=== PATIENT | male | born 1995 | race Caucasian/White ===

== ENCOUNTER 2018-09-16 09:29 | Emergency (ER) | payer BC, OTHER ==
--- NOTE | 2018-09-16 10:57 | ER ---
Nurse's Notes [facility] Name: Juan Lopez Age: 23 yrs Sex: Male : 1995 Arrival Date: 09/16/2018 Time: 09:33 Bed 20 Private MD: Diagnosis: Sprain of ankle Presentation: 09/16 09:33 Presenting complaint: Patient states: left foot injury Sunday, c/o pain. Transition sv of care: patient was not received from another setting of care. Onset of symptoms was September 11, 2018. Care prior to arrival: None. 09:33 Method Of Arrival: Ambulatory sv 09:33 Acuity: RADHA 4 sv 09:57 Risk Assessment: Do you want to hurt yourself or someone else? Patient reports no tw2 desire to harm self or others. Initial Sepsis Screen: Does the patient meet any 2 criteria? No. Patient's initial sepsis screen is negative. Does the patient have a suspected source of infection? No. Patient's initial sepsis screen is negative. Triage Assessment: 09:36 General: Appears in no apparent distress. uncomfortable, Behavior is calm, cooperative, sv appropriate for age. Pain: Denies pain. Neuro: Level of Consciousness is awake, alert, obeys commands, Oriented to person, place, time, situation, Moves all extremities. Respiratory: Respiratory effort is even, unlabored, Respiratory pattern is regular, symmetrical. Derm: Skin is normal, Bruising that is dark purple, on left foot. Musculoskeletal: Swelling present in left foot. Historical: - Allergies: 09:34 No Known Allergies; sv - PMHx: 09:34 None; sv - PSHx: 09:34 None; sv - Immunization history:: Flu vaccine is not up to date. - Social history:: Smoking status: Patient/guardian denies using tobacco, Patient/guardian denies using alcohol, street drugs, The patient lives with family. - Ebola Screening: : No symptoms or risks identified at this time. - Family history:: not pertinent. - Hospitalizations: : No recent hospitalization is reported. Screenin:36 Abuse screen: Denies threats or abuse. Nutritional screening: No deficits noted. tw2 Tuberculosis screening: No symptoms or risk factors identified. Fall Risk None identified. Assessment: 09:57 General: Appears in no apparent distress. Behavior is calm, cooperative, appropriate tw2 for age. Pain: Complains of pain in left foot. Neuro: Level of Consciousness is awake, alert, obeys commands, Oriented to person, place, time, situation. Cardiovascular: Patient's skin is warm and dry. Respiratory: Airway is patent Respiratory effort is even, unlabored, Respiratory pattern is regular, symmetrical. GI: No signs and/or symptoms were reported involving the gastrointestinal system. : No signs and/or symptoms were reported regarding the genitourinary system. EENT: No signs and/or symptoms were reported regarding the EENT system. Derm: No signs and/or symptoms reported regarding the dermatologic system. Musculoskeletal: Circulation, motion, and sensation intact. Range of motion: intact in all extremities, Reports pain in left foot. 10:37 Reassessment: Dr. Cardona at bedside at this time. tw2 11:23 Reassessment: Patient appears in no apparent distress at this time. No changes from tw2 previously documented assessment. Patient and/or family updated on plan of care and expected duration. Pain level reassessed. Patient is alert, oriented x 3, equal unlabored respirations, skin warm/dry/pink. Vital Signs: 09:34 BP 132 / 89; Pulse 79; Resp 18; Temp 97.5; Pulse Ox 100% ; Weight 97.52 kg; Height 5 sv ft. 8 in. (172.72 cm); Pain 0/10; 09:34 Body Mass Index 32.69 (97.52 kg, 172.72 cm) sv ED Course: 09:33 Patient arrived in ED. mr 09:34 Triage completed. sv 09:36 Arm band placed on. sv 09:36 Bed in low position. Call light in reach. Pulse ox on. NIBP on. tw2 09:38 Naseem Cardona MD is Attending Physician. ma2 09:48 Lavern Henriquez RN is Primary Nurse. tw2 11:23 No provider procedures requiring assistance completed. Patient did not have IV access tw2 during this emergency room visit. Administered Medications: No medications were administered Outcome: 10:56 Discharge ordered by . ma2 11:23 Patient left the ED. tw2 11:23 Discharged to home ambulatory. tw2 11:23 Condition: stable 11:23 Discharge instructions given to patient, Instructed on discharge instructions, follow up and referral plans. no drinking with medication, no driving heavy equipment, medication usage, safety practices, Demonstrated understanding of instructions, follow-up care, medications, Prescriptions given X 1. Signatures: Krystal Smith RN RN sv Milana Batista mr Lavern Henriquez RN RN tw2 Naseem Cardona MD MD ma2 Corrections: (The following items were deleted from the chart) 09:37 09:34 Pulse 79bpm; Resp 18bpm; Pulse Ox 100%; Temp 97.5F; 97.52 kg; Height 5 ft. 8 in.; sv BMI: 32.6; Pain 0/10; sv
--- NOTE | 2018-09-16 10:57 | EDPHYS ---
Physician Documentation [facility] Name: Juan Lopez Age: 23 yrs Sex: Male : 1995 Arrival Date: 09/16/2018 Time: 09:33 Bed 20 Private MD: ED Physician Naseem Cardona HPI: 09/16 10:54 This 23 yrs old Male presents to ER via Ambulatory with complaints of Foot ma2 Pain. 10:54 The patient presents with a contusion. The complaints affect the left foot. Context: ma2 The problem was sustained at work. Onset: The symptoms/episode began/occurred gradually, 1 day(s) ago. Associated signs and symptoms: Pertinent negatives: fever, numbness, swelling, vomiting. Severity of symptoms: At their worst the symptoms were very mild, in the emergency department the symptoms have resolved. The patient has not experienced similar symptoms in the past. Historical: - Allergies: 09:34 No Known Allergies; sv - PMHx: 09:34 None; sv - PSHx: 09:34 None; sv - Immunization history:: Flu vaccine is not up to date. - Social history:: Smoking status: Patient/guardian denies using tobacco, Patient/guardian denies using alcohol, street drugs, The patient lives with family. - Ebola Screening: : No symptoms or risks identified at this time. - Family history:: not pertinent. - Hospitalizations: : No recent hospitalization is reported. ROS: 10:54 MS/extremity: Positive for ecchymosis, Negative for injury or acute deformity, ma2 abrasion, decreased range of motion, pain, paresthesias, rash. 10:54 Constitutional: Negative for fever, chills, and weight loss, Cardiovascular: Negative for chest pain, palpitations, and edema, Respiratory: Negative for shortness of breath, cough, wheezing, and pleuritic chest pain, Abdomen/GI: Negative for abdominal pain, nausea, diarrhea, and constipation, Neuro: Negative for headache, weakness, numbness, tingling, and seizure, Psych: Negative for depression, anxiety, suicide ideation, homicidal ideation, and hallucinations. 10:54 All other systems are negative. Exam: 10:54 Constitutional: This is a well developed, well nourished patient who is awake, alert, ma2 and in no acute distress. Chest/axilla: Normal chest wall appearance and motion. Nontender with no deformity. No lesions are appreciated. Cardiovascular: Regular rate and rhythm with a normal S1 and S2. No gallops, murmurs, or rubs. Normal PMI, no JVD. No pulse deficits. Respiratory: Lungs have equal breath sounds bilaterally, clear to auscultation and percussion. No rales, rhonchi or wheezes noted. No increased work of breathing, no retractions or nasal flaring. Abdomen/GI: Soft, non-tender, with normal bowel sounds. No distension or tympany. No guarding or rebound. No evidence of tenderness throughout. Skin: Warm, dry with normal turgor. Normal color with no rashes, no lesions, and no evidence of cellulitis. MS/ Extremity: Pulses equal, no cyanosis. Neurovascular intact. Full, normal range of motion. Neuro: Awake and alert, GCS 15, oriented to person, place, time, and situation. Cranial nerves II-XII grossly intact. Motor strength 5/5 in all extremities. Sensory grossly intact. Cerebellar exam normal. Normal gait. Vital Signs: 09:34 BP 132 / 89; Pulse 79; Resp 18; Temp 97.5; Pulse Ox 100% ; Weight 97.52 kg; Height 5 sv ft. 8 in. (172.72 cm); Pain 0/10; 09:34 Body Mass Index 32.69 (97.52 kg, 172.72 cm) sv MDM: 09:38 Patient medically screened. ma2 10:54 Differential diagnosis: sprain, negative [place] rule no indication for foot or ankle ma2 xray. Data reviewed: vital signs, nurses notes. Counseling: I had a detailed discussion with the patient and/or guardian regarding: the historical points, exam findings, and any diagnostic results supporting the discharge/admit diagnosis, the presence of at least one elevated blood pressure reading (>120/80) during this emergency department visit, the need for outpatient follow up. 09/16 10:54 Order name: Ortho shoe: above ankle boot please; Complete Time: 11:23 ma2 09/16 10:54 Order name: Hari Wrap; Complete Time: 11:23 ma2 Administered Medications: No medications were administered Disposition: 09/16/18 10:56 Discharged to Home. Impression: Sprain of ankle. - Condition is Stable. - Discharge Instructions: Ankle Sprain, [id number]. - Prescriptions for Tylenol- Codeine #3 300-30 mg Oral Tablet - take 2 tablet by ORAL route every 6 hours As needed; 30 tablet. - Work release form, Medication Reconciliation Form, Thank You Letter, Antibiotic Education, Prescription Opioid Use form. - Follow up: Private Physician; When: Tomorrow; Reason: Continuance of care. Signatures: Krystal Smith RN RN Lavern Henriquez RN RN tw2 Naseem Cardona MD MD ma2 Corrections: (The following items were deleted from the chart) 11:23 10:56 09/16/2018 10:56 Discharged to Home. Impression: Sprain of ankle. Condition is tw2 Stable. Forms are Work release form, Medication Reconciliation Form, Thank You Letter, Antibiotic Education, Prescription Opioid Use. Follow up: Private Physician; When: Tomorrow; Reason: Continuance of care. ma2
[2018-09-16 11:51] VITALS: BP 132/89; TEMP 97.5; O2SAT 100
== END 2018-09-16 11:23 | disposition home or self-care (01) ==
LOC: ER 09:29
DX: S93.402A Sprain of unspecified ligament of left ankle, initial encounter (principal)
CPT/HCPCS: 99283

== ENCOUNTER 2021-10-07 18:06 | Inpatient (IN) | payer BC, SELFPAY ==
[2021-10-07 18:48] LABS: Protime INR 0.94
[2021-10-07 18:49] LABS: Absolute Lymphocytes (CBC) 2.5 K/uL (0.7-4.9); Hematocrit 41.6 % (39.6-49.0); Lymphocytes % 27.1 % (15.3-44.8); MPV 8.3 fL (7.6-11.3)
--- NOTE | 2021-10-07 19:07 | RAD REPORT ---
EXAM DESCRIPTION: Cindy Single View10/07/2021 6:48 pm CLINICAL HISTORY: Chest pain COMPARISON: 2016 FINDINGS: The lungs appear clear of acute infiltrate. The heart is normal size IMPRESSION: No acute abnormalities displayed
[2021-10-07 19:08] LABS: ALT/SGPT 26 U/L (12-78); AST/SGOT 16 U/L (15-37); Albumin 3.4 g/dL (3.4-5.0); Alkaline Phosphatase 77 U/L (45-117); BUN Blood Urea Nitrogen 31 mg/dL (7-18); Bicarbonate 27 mmol/L (21-32); Bilirubin Direct < 0.1 mg/dL (0-0.2); Bilirubin Total 0.3 mg/dL (0.2-1.0); Glucose Level 101 mg/dL (74-106); Magnesium 1.9 mg/dL (1.8-2.4); NT PRO-BNP 93 pg/mL (<125); Potassium 3.6 mmol/L (3.5-5.1); Sodium Level 141 mmol/L (136-145)
[2021-10-07] MEDS ORDERED: NA CHLORIDE 0.9% 2,000 ML ONE (19:13)
[2021-10-07] MEDS ORDERED: HYDRALAZINE HCL 20 MG/ML VIAL ONE ×2 (19:13→20:24)
[2021-10-07 19:20] LABS: Uric Acid 9.9 mg/dL (3.5-7.2)
--- NOTE | 2021-10-07 19:21 | EDPHYS ---
Physician Documentation [facility] Name: Juan Lopez Age: 26 yrs Sex: Male : 1995 Arrival Date: 10/07/2021 Time: 18:08 Bed 24 Private MD: ED Physician Tim Rodriguez HPI: 10/07 19:42 This 26 yrs old Male presents to ER via Ambulatory with complaints of Abnormal kb Lab Results, High Blood Pressure. 19:42 The patient complains of pain to the top of head. The patient describes the headache as kb intermittent. Onset: The symptoms/episode began/occurred 2 week(s) ago. Associated signs and symptoms: The patient has no apparent associated signs or symptoms. Severity of symptoms: At its worst the pain was mild, moderate, in the emergency department the pain has improved. Headache History: Denies prior headaches. The symptoms are alleviated by nothing. the symptoms are aggravated by nothing. The patient has not experienced similar symptoms in the past. The patient has been recently seen by a physician:. Pt reports he started having headaches about 2 weeks ago that got worse on Sunday so he checked his bp and it was high. Went to PCP on Sunday and was started on losartan 50mg daily. PCP ordered labs as well that were done at [facility]. Today his dr told him to come to the ER because his creatinine was high. Historical: - Allergies: 18:13 No Known Allergies; ld1 - Home Meds: 18:13 losartan 50 mg oral tab 1 tab once daily [Active]; ld1 - PMHx: 18:13 Hypertensive disorder; ld1 - PSHx: 18:13 None; ld1 - Immunization history:: Adult Immunizations up to date, Client reports having NOT received the Covid vaccine. - Social history:: Smoking status: Patient denies any tobacco usage or history of. Patient/guardian denies using alcohol. ROS: 19:41 Constitutional: Negative for fever, chills, and weight loss. kb 19:41 Neuro: Positive for headache. 19:41 All other systems are negative. Exam: 19:41 Constitutional: This is a well developed, well nourished patient who is awake, alert, kb and in no acute distress. Head/Face: Normocephalic, atraumatic. ENT: Moist Mucous membranes Cardiovascular: Regular rate and rhythm with a normal S1 and S2. No gallops, murmurs, or rubs. No pulse deficits. Respiratory: Respirations even and unlabored. No increased work of breathing. Talking in full sentences Skin: Warm, dry with normal turgor. Normal color. MS/ Extremity: Pulses equal, no cyanosis. Neurovascular intact. Full, normal range of motion. Neuro: Awake and alert, GCS 15, oriented to person, place, time, and situation. Moves all extremities. Normal gait. Psych: Awake, alert, with orientation to person, place and time. Behavior, mood, and affect are within normal limits. Vital Signs: 18:12 BP 201 / 140; Pulse 107; Resp 18; Temp 98.1(TE); Pulse Ox 99% on R/A; Weight 92.99 kg; ld1 Height 5 ft. 8 in. (172.72 cm); Pain 0/10; 18:30 BP 178 / 114; Pulse 94; Resp 16; Pulse Ox 100% on R/A; ab2 19:00 BP 156 / 118; Pulse 97; Resp 16; Pulse Ox 99% on R/A; ab2 19:30 BP 169 / 117; Pulse 102; Resp 16; Pulse Ox 98% on R/A; ab2 19:59 BP 169 / 117; Pulse 96; Resp 18; Temp 98; Pulse Ox 100% on R/A; ab2 20:20 BP 192 / 124; Pulse 93; Resp 18; Pulse Ox 98% on R/A; ab2 20:30 BP 165 / 109; Pulse 97; Resp 16; Pulse Ox 100% on R/A; ab2 21:23 BP 171 / 109; Pulse 95; Resp 16; Pulse Ox 98% on R/A; ab2 18:12 Body Mass Index 31.17 (92.99 kg, 172.72 cm) ld1 MDM: 18:23 Patient medically screened. kb 19:41 Data reviewed: vital signs, nurses notes. Data interpreted: Pulse oximetry: on room air kb is 99 %. Interpretation: normal. Counseling: I had a detailed discussion with the patient and/or guardian regarding: the historical points, exam findings, and any diagnostic results supporting the discharge/admit diagnosis, lab results, radiology results, the need for further work-up and treatment in the hospital. 10/07 18:28 Order name: Basic Metabolic Panel kb 10/07 18:28 Order name: CBC with Diff kb 10/07 18:28 Order name: LFT's; Complete Time: 19:19 kb 10/07 18:28 Order name: Magnesium; Complete Time: 19:19 kb 10/07 18:28 Order name: NT PRO-BNP; Complete Time: 19:19 kb 10/07 18:28 Order name: PT-INR; Complete Time: 18:58 kb 10/07 18:28 Order name: Troponin HS; Complete Time: 19:19 kb 10/07 18:28 Order name: Basic Metabolic Panel; Complete Time: 19:19 EDMS 10/07 18:28 Order name: CBC with Automated Diff; Complete Time: 18:58 EDMS 10/07 19:00 Order name: CPK; Complete Time: 19:22 la1 10/07 19:00 Order name: Uric Acid; Complete Time: 19:22 la1 10/07 19:04 Order name: COVID-19 SARS RT PCR (Document "Date of Onset" if Symptomatic) la10/07 19:04 Order name: SARS-COV-2 RT PCR; Complete Time: 22:30 EDMS 10/07 19:41 Order name: Ur Protein EDMS 10/07 18:28 Order name: XRAY Chest (1 view); Complete Time: 19:07 kb 10/07 18:28 Order name: EKG; Complete Time: 18:29 kb 10/07 18:28 Order name: Cardiac monitoring; Complete Time: 18:30 kb 10/07 18:28 Order name: EKG - Nurse/Tech; Complete Time: 18:30 kb 10/07 18:28 Order name: IV Saline Lock; Complete Time: 18:30 kb 10/07 18:28 Order name: Labs collected and sent; Complete Time: 18:30 kb 10/07 18:28 Order name: O2 Per Protocol; Complete Time: 18:30 kb 10/07 18:28 Order name: O2 Sat Monitoring; Complete Time: 18:30 kb 10/07 19:36 Order name: Urine Dipstick-Ancillary (obtain specimen); Complete Time: 19:57 la1 10/07 19:55 Order name: Urine Dipstick-Ancillary; Complete Time: 20:20 EDMS Administered Medications: 19:15 Drug: hydrALAZINE 5 mg Route: IVP; Site: left antecubital; ab2 19:15 Drug: NS 0.9% 1000 ml Route: IV; Rate: 1000 ml; Site: left antecubital; ab2 20:24 Drug: hydrALAZINE 5 mg Route: IVP; Site: left antecubital; ab2 21:05 Drug: NS 0.9% 1000 ml Route: IV; Rate: 1000 ml; Site: left antecubital; ab2 21:29 Drug: amLODIPine 10 mg Route: PO; ab2 Disposition: 10/08 07:10 Co-signature as Attending Physician, Tim Rodriguez MD I agree with the assessment and rn plan of care. Attestation: The patient's history, exam findings, diagnostics, and a summary of any interventions or procedures was reviewed in detail with Lawanda LAL. Disposition Summary: 10/07/21 19:20 Hospitalization Ordered Hospitalization Status: Inpatient Admission kb Provider: Jose Raul Palmer Location: Telemetry/MedSurg (Inpatient) kb Condition: Stable kb Problem: new kb Symptoms: are unchanged kb Bed/Room Type: Standard Room Assignment: 217(10/07/21 21:14) Diagnosis - Acute kidney failure, unspecified kb - Essential (primary) hypertension kb Forms: - Medication Reconciliation Form kb - SBAR form kb Signatures: Dispatcher [employer] Lawanda Wolf, HALI PUGH-Tim Hernandez MD MD rn Attema, Lee, FNP-C FNP-Emelia Cheng RN RN Megan Alonzo RN RN ld1 Kevin Reddy abLou Corrections: (The following items were deleted from the chart) 10/07 21:14 19:20 kb cg
--- NOTE | 2021-10-07 19:21 | ER ---
Nurse's Notes [facility] Name: Juan Lopez Age: 26 yrs Sex: Male : 1995 Arrival Date: 10/07/2021 Time: 18:08 Bed 24 Private MD: Diagnosis: Acute kidney failure, unspecified;Essential (primary) hypertension Presentation: 10/07 18:12 Chief complaint: Patient states: My doctor told me to come get my labs looked at. ld1 Creatine levels are alarming. Pt reports getting blood work done on Sunday via [facility] - has results on him. Coronavirus screen: At this time, the client does not indicate any symptoms associated with coronavirus-19. Ebola Screen: No symptoms or risks identified at this time. Initial Sepsis Screen: Does the patient meet any 2 criteria? No. Patient's initial sepsis screen is negative. Does the patient have a suspected source of infection? No. Patient's initial sepsis screen is negative. Risk Assessment: Do you want to hurt yourself or someone else? Patient reports no desire to harm self or others. Onset of symptoms was October 07, 2021. 18:12 Method Of Arrival: Ambulatory ld1 18:12 Acuity: RADHA 3 ld1 Triage Assessment: 18:13 General: Appears in no apparent distress. comfortable, Behavior is calm, cooperative, ld1 appropriate for age. Pain: Denies pain. Neuro: Level of Consciousness is awake, alert, obeys commands, Oriented to person, place, time, situation. Cardiovascular: Denies chest pain. Respiratory: Airway is patent Respiratory effort is even, unlabored. Historical: - Allergies: 18:13 No Known Allergies; ld1 - Home Meds: 18:13 losartan 50 mg oral tab 1 tab once daily [Active]; ld1 - PMHx: 18:13 Hypertensive disorder; ld1 - PSHx: 18:13 None; ld1 - Immunization history:: Adult Immunizations up to date, Client reports having NOT received the Covid vaccine. - Social history:: Smoking status: Patient denies any tobacco usage or history of. Patient/guardian denies using alcohol. Screenin:23 Abuse screen: Denies threats or abuse. Denies injuries from another. Nutritional ab2 screening: No deficits noted. Tuberculosis screening: No symptoms or risk factors identified. Fall Risk None identified. Assessment: 18:22 General: Appears in no apparent distress. comfortable, Behavior is calm, cooperative, ab2 appropriate for age. Pain: Denies pain. Neuro: No deficits noted. Level of Consciousness is awake, alert, obeys commands, Oriented to person, place, time, situation, Appropriate for age [employer] are equal bilaterally Moves all extremities. Gait is steady, Speech is normal. Cardiovascular: Denies chest pain, shortness of breath, Heart tones S1 S2 present Patient's skin is warm and dry. Respiratory: No deficits noted. Airway is patent Respiratory effort is even, unlabored, Respiratory pattern is regular, symmetrical. GI: No deficits noted. No signs and/or symptoms were reported involving the gastrointestinal system. : No deficits noted. No signs and/or symptoms were reported regarding the genitourinary system. EENT: No deficits noted. No signs and/or symptoms were reported regarding the EENT system. Derm: No deficits noted. No signs and/or symptoms reported regarding the dermatologic system. Skin is intact, is healthy with good turgor, Skin is dry, Skin is pink, warm \\T\\ dry. Musculoskeletal: No deficits noted. No signs and/or symptoms reported regarding the musculoskeletal system. 20:18 Reassessment: Patients Blood pressure still elevated after one dose of 5mg of ab2 Hydralazine IVP. PARISH Webber notified verbal order for 5mg hydralazine IVP. 21:00 Reassessment: Patients blood pressure remains elevated after giving medications per ab2 physician orders. PARISH Quezada notified of abnormal BP and no new orders were received at this time. Vital Signs: 18:12 BP 201 / 140; Pulse 107; Resp 18; Temp 98.1(TE); Pulse Ox 99% on R/A; Weight 92.99 kg; ld1 Height 5 ft. 8 in. (172.72 cm); Pain 0/10; 18:30 BP 178 / 114; Pulse 94; Resp 16; Pulse Ox 100% on R/A; ab2 19:00 BP 156 / 118; Pulse 97; Resp 16; Pulse Ox 99% on R/A; ab2 19:30 BP 169 / 117; Pulse 102; Resp 16; Pulse Ox 98% on R/A; ab2 19:59 BP 169 / 117; Pulse 96; Resp 18; Temp 98; Pulse Ox 100% on R/A; ab2 20:20 BP 192 / 124; Pulse 93; Resp 18; Pulse Ox 98% on R/A; ab2 20:30 BP 165 / 109; Pulse 97; Resp 16; Pulse Ox 100% on R/A; ab2 21:23 BP 171 / 109; Pulse 95; Resp 16; Pulse Ox 98% on R/A; ab2 18:12 Body Mass Index 31.17 (92.99 kg, 172.72 cm) ld1 ED Course: 18:08 Patient arrived in ED. as 18:13 Triage completed. ld1 18:13 Arm band placed on right wrist. ld1 18:22 Lawanda Aldridge FNP-C is [facility]. kb 18:23 Tim Rodriguez MD is Attending Physician. kb 18:23 Patient has correct armband on for positive identification. Bed in low position. Call ab2 light in reach. Side rails up X2. 18:23 No provider procedures requiring assistance completed. ab2 18:30 Kevin Reddy is Primary Nurse. ab2 18:30 LFT's Sent. ab2 18:31 Magnesium Sent. ab2 18:32 Inserted saline lock: 20 gauge in left antecubital area, using aseptic technique. Blood ld1 collected. 18:33 NT PRO-BNP Sent. ab2 18:33 PT-INR Sent. ab2 18:33 Troponin HS Sent. ab2 18:34 Basic Metabolic Panel Sent. ab2 18:34 CBC with Automated Diff Sent. ab2 18:48 XRAY Chest (1 view) In Process Unspecified. EDMS 18:48 CBC with Automated Diff Sent. ab2 18:48 Basic Metabolic Panel Sent. ab2 18:48 Basic Metabolic Panel Sent. ab2 18:48 CBC with Diff Sent. ab2 19:10 SARS-COV-2 RT PCR Sent. ab2 19:18 COVID-19 SARS RT PCR (Document "Date of Onset" if Symptomatic) Sent. ab2 19:20 Jose Raul Palmer MD is Hospitalizing Provider. kb 19:57 Ur Protein Sent. ab2 Administered Medications: 19:15 Drug: hydrALAZINE 5 mg Route: IVP; Site: left antecubital; ab2 19:15 Drug: NS 0.9% 1000 ml Route: IV; Rate: 1000 ml; Site: left antecubital; ab2 20:24 Drug: hydrALAZINE 5 mg Route: IVP; Site: left antecubital; ab2 21:05 Drug: NS 0.9% 1000 ml Route: IV; Rate: 1000 ml; Site: left antecubital; ab2 21:29 Drug: amLODIPine 10 mg Route: PO; ab2 Outcome: 19:20 Decision to Hospitalize by Provider. kb 21:48 Admitted to Med/surg accompanied by nurse, with chart, Report called to Med Surg, RN ab2 21:48 Condition: good 22:03 Patient left the ED. mw2 Signatures: Dispatcher [employer] EDMS Lawanda Aldridge, GENERAL MILLING SUPERINTENDENT-C GENERAL MILLING SUPERINTENDENT-Elise Yun MyKena mw2 Megan Robert, RN RN ld1 Kevin Reddy ab2 Corrections: (The following items were deleted from the chart) 19:59 19:59 BP 156 / 118; Pulse 97bpm; Resp 16bpm; Pulse Ox 99% RA; ab2 ab2
[2021-10-07 19:55] LABS: Urine Blood Trace-intact (Negative); Urine Glucose Negative (Negative); Urine Protein 2+ (Negative); Urine Specific Gravity 1.015 (1.005-1.030); Urine pH 5.5 (5.0-7.0)
--- NOTE | 2021-10-07 20:28 | P.HP ---
Certification for Inpatient Patient admitted to: Inpatient With expected LOS: >2 Midnights Patient will require the following post-hospital care: None Practitioner: I am a practitioner with admitting privileges, knowledge of patient current condition, hospital course, and medical plan of care. Services: Services provided to patient in accordance with Admission requirements found in Title 42 Section 412.3 of the Code of Federal Regulations Patient History Date of Service: 10/07/21 Primary Care Provider: Qasim Reason for admission: ARF History of Present Illness: Otherwise healthy 26-year-old male presented to the emergency department for hypertension, abnormal labs. He reports that his blood pressure has been running high at home and he was having headaches for that reason he went to his primary care doctor on 10/05/2021 to have labs drawn. Patient was also initiated on losartan on that day. The labs from Sunday resulted with elevated creatinine patient was still feeling unwell and had hypertension and therefore came to the emergency department. Patient was evaluated here in the emergency department his labs were significant for BUN 31 creatinine 2.4 GFR 32 uric acid 9.9 CPK 204 troponin 140.2 high-sensitivity urine dip with trace blood and 2+ total protein. Patient denies any recent antibiotics, IV contrast. 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 I discussed case with nephrology while patient was in the emergency department recommended additional testing will admit for further evaluation and management. Allergies No Known Allergies Allergy (Unverified 09/30/13 04:27) Home Medications: Mesalamine [Pentasa*] 1,000 mg PO BID #60 capsule.er 10/22/13 metroNIDAZOLE [Flagyl*] 500 mg PO Q8H #30 tablet 10/22/13 - Past Medical/Surgical History -: Hypertension -: None Psychosocial/ Personal History: Patient is employed as a contractor, lives at home with family - Family History Family History: Reviewed- Non-Contributory - Social History Smoking Status: Never smoker Alcohol use: No CD- Drugs: No Caffeine use: No Place of Residence: Home Review of Systems 10-point ROS is otherwise unremarkable Genitourinary: Other (Frothy urine) Neurological: Other (Headache) Physical Examination - Physical Exam General: Alert, In no apparent distress, Oriented x3 HEENT: Atraumatic, PERRLA, Mucous membr. moist/pink, EOMI, Sclerae nonicteric Neck: Supple, 2+ carotid pulse no bruit, No LAD, Without JVD or thyroid abnormality Respiratory: Clear to auscultation bilaterally, Normal air movement Cardiovascular: Regular rate/rhythm, Normal S1 S2 Gastrointestinal: Normal bowel sounds, No tenderness Musculoskeletal: No tenderness Integumentary: No rashes Neurological: Normal gait, Normal speech, Normal strength at 5/5 x4 extr, Normal tone, Normal affect Lymphatics: No axilla or inguinal lymphadenopathy - Studies Laboratory Data (last 24 hrs) 10/07/21 19:00: Uric Acid 9.9 H 10/07/21 18:30: PT 10.8, INR 0.94 10/07/21 18:30: WBC 9.10, Hgb 14.0, Hct 41.6, Plt Count 248 10/07/21 18:30: Sodium 141, Potassium 3.6, BUN 31 H, Creatinine 2.40 H, Glucose 101, Magnesium 1.9, Total Bilirubin 0.3, AST 16, ALT 26, Alkaline Phosphatase 77 Assessment and Plan - Plan Assessment: Acute renal failure Hypertension Plan: Acute renal failure: Nephrology consulted, case discussed. Given IV fluid bolus in the ER continue gentle hydration overnight. Obtain renal ultrasound, urine protein/creatinine with ratio. Appreciate further input from nephrology Hypertension: Discontinue losartan given acute renal failure, initiated on amlodipine with as needed hydralazine IV. DVT PPX: Heparin Code status: Full Discharge Plan: Home Plan to discharge in: 48 Hours - Advance Directives Does patient have a Living Will: No Does patient have a Durable POA for Healthcare: No - Code Status/Comfort Care Code Status Assessed: Yes (Full) Critical Care: No Time Spent Managing Pts Care (In Minutes): 55
[2021-10-07] MEDS ORDERED: AMLODIPINE 10 MG TAB ONE (21:30)
[2021-10-07] MEDS ORDERED: ONDANSETRON 4 MG/2 ML VIAL IV PRN (22:15)
[2021-10-07] MEDS ORDERED: NA CHLORIDE 0.9% 1,000 ML IV SCH (22:15)
[2021-10-07] MEDS ORDERED: HYDRALAZINE HCL 20 MG/ML VIAL IV PRN (22:15)
[2021-10-07 22:31] VITALS: BMI 32.3
[2021-10-07 22:38] VITALS: O2SAT 98
[2021-10-07] MEDS: HEPARIN 5000 UNIT/ML 1 ML VIAL SQ SCH (22:59)
[2021-10-07] MEDS: NACHLORIDE 0.45% 1,000 ML IV SCH (23:08)
[2021-10-08] MEDS: LABETALOL 20 MG/4ML SYRINGE IV PRN (00:15)
[2021-10-08] MEDS ORDERED: HYDRALAZINE HCL 20 MG/ML VIAL IV PRN (00:33)
[2021-10-08] MEDS ORDERED: METOPROLOL TAR 50 MG TAB PO ONE (00:34)
[2021-10-08 03:37] LABS: Absolute Lymphocytes (CBC) 2.5 K/uL (0.7-4.9); Hematocrit 40.4 % (39.6-49.0); Lymphocytes % 25.5 % (15.3-44.8); MPV 8.3 fL (7.6-11.3); RBC Red Blood Cell Count 4.49 M/uL (4.33-5.43)
[2021-10-08 04:14] LABS: Albumin 3.1 g/dL (3.4-5.0); Bilirubin Total 0.4 mg/dL (0.2-1.0); Protein, Total 6.3 g/dL (6.4-8.2); Thyroid Stimulating Hormone 3.27 uIU/mL (0.360-3.740)
[2021-10-08 04:17] LABS: Troponin High Sensitivity 116.6 pg/mL (<58.9)
--- NOTE | 2021-10-08 07:46 | RAD REPORT ---
EXAM DESCRIPTION: US - Renal Ultrasound-Complete - 10/07/2021 11:55 pm CLINICAL HISTORY: arf COMPARISON: CT ABD PELVIS W CONTRAST dated 09/30/2013 FINDINGS: The right kidney measures grossly 9 x 6 cm. The left kidney measures grossly 10 x 6 cm. C ortical thickness is normal. Both kidneys show slight increase in cortical echogenicity. This can be body habitus artifact or medical renal disease. No hydronephrosis or suspicious renal mass. A small 1 0 mm anechoic to hypoechoic focus is present lower pole right kidney most likely an incidental cyst. A 7 mm anechoic to hypoechoic focus is present in the mid to lower left kidney also believed to be an incidental cyst. No bladder wall thickening or mass. No intraluminal stone or mass. IMPRESSION: No hydronephrosis or suspicious renal mass. Increased cortical echogenicity in each kidney likely reflects underlying medical renal disease. No urinary bladder abnormality seen.
[2021-10-08] MEDS: AMLODIPINE 10 MG TAB PO SCH (10:05)
[2021-10-08] MEDS: HEPARIN 5000 UNIT/ML 1 ML VIAL SQ SCH ×2 (10:06→21:26)
[2021-10-08] MEDS: NACHLORIDE 0.45% 1,000 ML IV SCH ×2 (10:06→19:00)
--- NOTE | 2021-10-08 12:25 | P.PN ---
Subjective Date of Service: 10/08/21 Primary Care Provider: Qasim Chief Complaint: ARF Subjective: No new changes, Tolerating diet Physical Examination - Vital Signs Temperature: 97.1 F Blood Pressure: 149/94 Pulse: 84 Respirations: 17 Pulse Ox (%): 97 - Studies Laboratory Data (last 24 hrs) 10/07/21 19:00: Uric Acid 9.9 H 10/07/21 18:30: PT 10.8, INR 0.94 10/07/21 18:30: WBC 9.10, Hgb 14.0, Hct 41.6, Plt Count 248 10/07/21 18:30: Sodium 141, Potassium 3.6, BUN 31 H, Creatinine 2.40 H, Glucose 101, Magnesium 1.9, Total Bilirubin 0.3, AST 16, ALT 26, Alkaline Phosphatase 77 Assessment And Plan Physician Review: Patient Assessed, Agree with Above Assessment and Plan Physician Review Additional Text: 10/08/21 12:22 Physical Exam General: Alert, young male, average build, calm, HEENT: Atraumatic, PERRLA, Mucous membr. moist/pink, EOMI, Sclerae nonicteric Neck: Supple, 2+ carotid pulse no bruit, No LAD, Without JVD or thyroid abnormality Respiratory: Clear to auscultation bilaterally, Normal air movement Cardiovascular: Regular rate/rhythm, Normal S1 S2 Gastrointestinal: Normal bowel sounds, No tenderness Musculoskeletal: No tenderness Integumentary: No rashes Neurological: Normal gait, Normal speech, Normal strength at 5/5 x4 extr, Normal tone, Normal affect Lymphatics: No axilla or inguinal lymphadenopathy Lab studiescreatinine 2.08 Assessment and Plan - Plan Assessment: Acute renal failure Hypertension Elevated troponin Plan: Acute renal failure: Creatinine trending down to 2.08 with IV fluid May be due to NSAID nephropathy given patient reported daily NSAID use since the last 2 weeks Follow-up pending urine studies for proteinuria as well as fractional excretion of sodium Continue gentle IV fluid Add sodium bicarb to regimen Follow nephrology consulted Hypertension: Continue started amlodipine, hold losartan for now Recurrent headachespossibly due to migraine, follow with as needed pain regimen Elevated troponinfollow repeat trend, obtain EKG Cardiology consult if persistent Doubt related to renal failure DVT PPX: Heparin Code status: Full Discharge Plan: Home Plan to discharge in: 48 Hours Time Spent Managing PTS Care (In Minutes): 35
[2021-10-08 16:56] LABS: Urine Appearance CLEAR (Clear); Urine Bilirubin NEGATIVE (Negative); Urine Blood 1+ (Negative); Urine Color YELLOW (Yellow); Urine Glucose NEGATIVE (Negative); Urine Protein 2+ (Negative); Urine Urobilinogen 0.2 mg/dL (0.2-1.0)
[2021-10-08] MEDS ORDERED: ACETAMINOPHEN 325 MG TABLET PO PRN (17:09)
[2021-10-08 17:15] LABS: Urine Bacteria <20 /HPF (NONE SEEN); Urine RBC <5 /HPF (NONE SEEN)
[2021-10-08 19:56] LABS: UR PROTEIN 67.2 mg/dL (<11.9); Urine Protein/Creatinine Ratio 2.8 ratio (<0.15)
--- NOTE | 2021-10-08 20:27 | P.CNS ---
Date of Consult: 10/08/21 Reason for Consult: KATE/ Proteinuria Requesting Physician: Jose Raul Palmer Primary Care Provider: Qasim Chief Complaint: ARF History of Present Illness: 26 yo WM presented to the ER with severe, progressive HTN with associated headaches complicated by CKD. He reports taking ibuprofen regularly since the beginning of August. No bladder issues. He reports foamy urine for some time. He was recently started on Losartan by his PCP. Otherwise healthy 26-year-old male presented to the emergency department for hypertension, abnormal labs. He reports that his blood pressure has been running high at home and he was having headaches for that reason he went to his primary care doctor on 10/05/2021 to have labs drawn. Patient was also initiated on losartan on that day. The labs from Sunday resulted with elevated creatinine patient was still feeling unwell and had hypertension and therefore came to the emergency department. Patient was evaluated here in the emergency department his labs were significant for BUN 31 creatinine 2.4 GFR 32 uric acid 9.9 CPK 204 troponin 140.2 high-sensitivity urine dip with trace blood and 2+ total protein. Patient denies any recent antibiotics, IV contrast. 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 I discussed case with nephrology while patient was in the emergency department recommended additional testing will admit for further evaluation and management. 19:42 This 26 yrs old Male presents to ER via Ambulatory with complaints of Abnormal kb Lab Results, High Blood Pressure. 19:42 The patient complains of pain to the top of head. The patient describes the headache as kb intermittent. Onset: The symptoms/episode began/occurred 2 week(s) ago. Associated signs and symptoms: The patient has no apparent associated signs or symptoms. Severity of symptoms: At its worst the pain was mild, moderate, in the emergency department the pain has improved. Headache History: Denies prior headaches. The symptoms are alleviated by nothing. the symptoms are aggravated by nothing. The patient has not experienced similar symptoms in the past. The patient has been recently seen by a physician:. Pt reports he started having headaches about 2 weeks ago that got worse on Sunday so he checked his bp and it was high. Went to PCP on Sunday and was started on losartan 50mg daily. PCP ordered labs as well that were done at [facility]. Today his dr told him to come to the ER because his creatinine was high. Allergies No Known Allergies Allergy (Unverified 09/30/13 04:27) Home medications list reviewed: Yes Home Medications: Losartan Potassium 50 mg PO DAILY 10/07/21 - Past Medical/Surgical History Diabetic: No -: Hypertension -: None Psychosocial/ Personal History: Patient is employed as a contractor, lives at home with family - Social History Smoking Status: Never smoker Alcohol use: Yes CD- Drugs: Yes Caffeine use: No Place of Residence: Home Review of Systems 10-point ROS is otherwise unremarkable Physical Examination Temp Pulse Resp BP Pulse Ox 98.0 F 18 L 18 161/99 H 98 10/08/21 16:00 10/08/21 16:00 10/08/21 16:00 10/08/21 16:00 10/08/21 16:00 General: Oriented x3, Cooperative HEENT: Atraumatic Neck: Supple Respiratory: Clear to auscultation bilaterally Cardiovascular: No edema, Regular rate/rhythm Gastrointestinal: Soft and benign, Non-distended Musculoskeletal: No clubbing, No contractures Integumentary: No rashes, No cyanosis Neurological: Normal speech Blood work reviewed in the chart. Imagings Data: EXAM DESCRIPTION: [facility] Single View10/07/2021 6:48 pm CLINICAL HISTORY: Chest pain COMPARISON: 2016 FINDINGS: The lungs appear clear of acute infiltrate. The heart is normal size IMPRESSION: No acute abnormalities displayed EXAM DESCRIPTION: US - Renal Ultrasound-Complete - 10/07/2021 11:55 pm CLINICAL HISTORY: arf COMPARISON: CT ABD PELVIS W CONTRAST dated 09/30/2013 FINDINGS: The right kidney measures grossly 9 x 6 cm. The left kidney measures grossly 10 x 6 cm. Cortical thickness is normal. Both kidneys show slight increase in cortical echogenicity. This can be body habitus artifact or medical renal disease. No hydronephrosis or suspicious renal mass. A small 10 mm anechoic to hypoechoic focus is present lower pole right kidney most likely an incidental cyst. A 7 mm anechoic to hypoechoic focus is present in the mid to lower left kidney also believed to be an incidental cyst. No bladder wall thickening or mass. No intraluminal stone or mass. IMPRESSION: No hydronephrosis or suspicious renal mass. Increased cortical echogenicity in each kidney likely reflects underlying medical renal disease. No urinary bladder abnormality seen. Conclusions/Impression: KATE may be multi-factorial but exacerbated by his recent excessive ibuprofen CKD III with proteinuria -No NSAIDs -Continue IVF HTN with CKD -Continue Amlodipine -Start Losartan BID Mild malnutrition -Encourage nutrition HyperTG -Low sugar diet Thank you kindly for the consultation. Case reviewed with Dr. Palmer
[2021-10-08] MEDS: LOSARTAN POTASSIUM 50 MG TABLET PO SCH (21:26)
[2021-10-09] MEDS: NACHLORIDE 0.45% 1,000 ML IV SCH ×3 (04:46→23:30)
[2021-10-09 05:14] LABS: Urine Appearance CLEAR (Clear); Urine Bilirubin NEGATIVE (Negative); Urine Blood 1+ (Negative); Urine Color YELLOW (Yellow); Urine Glucose NEGATIVE (Negative); Urine Protein 3+ (Negative); Urine Specific Gravity 1.015 (1.005-1.030); Urine Urobilinogen 0.2 mg/dL (0.2-1.0); Urine pH 6.5 (5.0-7.0)
[2021-10-09 05:23] LABS: Urine Bacteria 20-50 /HPF (NONE SEEN); Urine Mucus 2+ /HPF (NONE SEEN)
[2021-10-09 05:48] LABS: Absolute Lymphocytes (CBC) 2.1 K/uL (0.7-4.9); Hematocrit 43.4 % (39.6-49.0); Lymphocytes % 27.7 % (15.3-44.8); MPV 8.1 fL (7.6-11.3); RBC Red Blood Cell Count 4.84 M/uL (4.33-5.43)
[2021-10-09 06:08] LABS: Albumin 3.2 g/dL (3.4-5.0); Bilirubin Total 0.7 mg/dL (0.2-1.0); Potassium 3.6 mmol/L (3.5-5.1); Protein, Total 6.9 g/dL (6.4-8.2); Uric Acid 8.8 mg/dL (3.5-7.2)
[2021-10-09] MEDS: LOSARTAN POTASSIUM 50 MG TABLET PO SCH ×2 (08:31→21:14)
[2021-10-09] MEDS: AMLODIPINE 10 MG TAB PO SCH (08:31)
[2021-10-09] MEDS: HEPARIN 5000 UNIT/ML 1 ML VIAL SQ SCH ×2 (08:32→21:14)
[2021-10-09] MEDS: carvediloL 6.25 MG TAB PO SCH ×2 (10:21→17:25)
--- NOTE | 2021-10-09 13:12 | P.PN ---
Subjective Date of Service: 10/09/21 Primary Care Provider: Qasim Chief Complaint: ARF Subjective: No new changes, No C/O voiced Physical Examination - Vital Signs Temperature: 97.6 F Blood Pressure: 148/79 Pulse: 94 Respirations: 17 Pulse Ox (%): 96 - Physical Exam General: Alert, In no apparent distress, Oriented x3 Assessment And Plan Physician Review: Patient Assessed, Agree with Above Assessment and Plan Physician Review Additional Text: 10/08/21 12:22 Physical Exam General: Alert, young male, average build, calm, HEENT: Atraumatic, PERRLA, Mucous membr. moist/pink, EOMI, Sclerae nonicteric Neck: Supple, 2+ carotid pulse no bruit, No LAD, Without JVD or thyroid abnormality Respiratory: Clear to auscultation bilaterally, Normal air movement Cardiovascular: Regular rate/rhythm, Normal S1 S2 Gastrointestinal: Normal bowel sounds, No tenderness Musculoskeletal: No tenderness Integumentary: No rashes Neurological: Normal gait, Normal speech, Normal strength at 5/5 x4 extr, Normal tone, Normal affect Lymphatics: No axilla or inguinal lymphadenopathy Lab studiescreatinine 2.10 urine protein/creatinine ratio 2.8g/g Assessment and Plan Acute renal failurepossibly due to acute nephritic syndrome Hypertension Elevated troponin Plan: Acute renal failure: Creatinine remains stable at 2.1, no further improvement even with IVF Urine sonogram shows mild corticomedullary echogenicity, urine proteinuria of 2.8 g/g noted as well as UA with microscopic hematuria Possibility of IgA nephropathy considered We need renal biopsyon Sunday Nephrology on board Continue IV fluid while awaiting renal biopsy Plan for discharge after renal biopsy Hypertension: Still elevated, started on Coreg, continue amlodipine, may need DC losartan Recurrent headachespossibly due to migraine versus hypertension, follow with as needed pain regimen Elevated troponintrended to normal range DVT PPX: Heparin Code status: Full Discharge Plan: Home Plan to discharge in: 48 Hours 10/09/21 13:09 10/09/21 13:11
[2021-10-10] MEDS: carvediloL 6.25 MG TAB PO SCH ×2 (05:49→16:58)
[2021-10-10 07:03] LABS: Absolute Lymphocytes (CBC) 1.8 K/uL (0.7-4.9); Hematocrit 44.6 % (39.6-49.0); Lymphocytes % 32.7 % (15.3-44.8); MPV 8.1 fL (7.6-11.3); RBC Red Blood Cell Count 4.96 M/uL (4.33-5.43)
[2021-10-10 07:21] LABS: Albumin 3.3 g/dL (3.4-5.0); Bilirubin Total 0.6 mg/dL (0.2-1.0); Magnesium 2.2 mg/dL (1.8-2.4); Protein, Total 6.9 g/dL (6.4-8.2)
[2021-10-10] MEDS: AMLODIPINE 10 MG TAB PO SCH (08:14)
[2021-10-10] MEDS: HEPARIN 5000 UNIT/ML 1 ML VIAL SQ SCH (08:14)
[2021-10-10] MEDS: LOSARTAN POTASSIUM 50 MG TABLET PO SCH ×2 (08:14→21:51)
[2021-10-10] MEDS: NACHLORIDE 0.45% 1,000 ML IV SCH ×2 (09:05→18:14)
--- NOTE | 2021-10-10 12:10 | CON ---
Date of Consultation: 10/08/2021 Reason For Consultation: Elevated troponin. History Of Present Illness: is a 26-year-old young man with history of hypertension, comes in with acute renal failure. Creatinine is 2.4, blood pressure was 178/114, elevated troponin, elev ated triglyceride. No symptoms reported from a chest pain standpoint. He denied any shortness of br eath. Most of the symptoms were headache and dizziness. Denied PND, orthopnea, pedal edema, palpita tions, or syncope. Denied nausea, vomiting, diaphoresis. He denied fever or chills or cough. Past Medical History: Includes hypertension. Allergies: NONE. Review of Systems: Negative. Social History: Negative. Family History: Positive for hypertension. Medications: At home include losartan. Physical Examination: Vital Signs: Blood pressure is 178/114, sinus rhythm. Vital signs stable, otherwise afebrile. Chest: Clear. HEENT: Negative. Cardiac: Normal. Abdomen: Benign. Extremities: Revealed no clubbing, cyanosis, or edema. Diagnostic Data: As stated earlier. Impression And Plan: Elevated troponin secondary to renal failure and hypertension. Echocardiogram is pending. Nephrology is following. His graciela blood pressure controlled. I do not think we are de aling with acute coronary syndrome. He is presently on Norvasc, metoprolol, labetalol, and hydralazi ne and I agree with this regimen hopefully his kidney function would improve. We will continue to fo llow him as needed. MARCELLO/CHARITY Voice ID: [id number] Report ID: [id number]
[2021-10-10] MEDS: LABETALOL 20 MG/4ML SYRINGE IV PRN (13:18)
--- NOTE | 2021-10-10 20:40 | P.PN ---
Date of Service: 10/10/21 Vital Signs Temp Pulse Resp BP Pulse Ox 98.0 F 107 H 15 144/92 H 97 10/10/21 16:00 10/10/21 16:00 10/10/21 16:00 10/10/21 16:00 10/10/21 16:00 Medications Acetaminophen (Acetaminophen 325 Mg Tablet) 650 mg PO Q4HP PRN PRN Reason: Pain scale 5-7 (Moderate) Last Admin: 10/08/21 17:33 Dose: 325 mg Documented by: Amlodipine Besylate (Amlodipine 10 Mg Tab) 10 mg PO DAILY [facility] Last Admin: 10/10/21 08:14 Dose: 10 mg Documented by: Carvedilol (Carvedilol 12.5 Mg Tab) 12.5 mg PO BID 6AM 6PM [facility] Hydralazine HCl (Hydralazine Hcl 20 Mg/Ml Vial) 10 mg IV Q4HP PRN PRN Reason: Titrate to SBP (MUST DEFINE) Last Admin: 10/10/21 14:44 Dose: 10 mg Documented by: Sodium Chloride (Sodium Chloride 0.45%) 1,000 mls @ 100 mls/hr IV .Q10H [facility] Last Admin: 10/10/21 18:14 Dose: 1,000 mls Documented by: Labetalol HCl (Labetalol 20 Mg/4ml Syringe) 10 mg IV Q4H PRN PRN Reason: Titrate to SBP (MUST DEFINE) Last Admin: 10/10/21 13:18 Dose: 20 mg Documented by: Losartan Potassium (Losartan Potassium 50 Mg Tablet) 50 mg PO BID [facility] Last Admin: 10/10/21 08:14 Dose: 50 mg Documented by: Ondansetron HCl (Ondansetron 4 Mg/2 Ml Vial) 4 mg IV Q6HP PRN PRN Reason: NAUSEA / VOMITING Sodium Chloride (Flush Normal Saline 10 Ml) 10 ml IV BID [facility] Last Admin: 10/10/21 08:15 Dose: 10 ml Documented by: Assessment/ Plan: Nephrology No dyspnea No chest pain No acute events overnight Vitals, medications, blood work and imaging reviewed in the chart. General: Oriented x3, Cooperative HEENT: Atraumatic Neck: Supple Respiratory: Clear to auscultation bilaterally Cardiovascular: No edema, Regular rate/rhythm Gastrointestinal: Soft and benign, Non-distended Musculoskeletal: No clubbing, No contractures Integumentary: No rashes, No cyanosis Neurological: Normal speech Blood work reviewed in the chart. Imagings Data: EXAM DESCRIPTION: [facility] Single View10/07/2021 6:48 pm CLINICAL HISTORY: Chest pain COMPARISON: 2017 FINDINGS: The lungs appear clear of acute infiltrate. The heart is normal size IMPRESSION: No acute abnormalities displayed EXAM DESCRIPTION: US - Renal Ultrasound-Complete - 10/07/2021 11:55 pm CLINICAL HISTORY: arf COMPARISON: CT ABD PELVIS W CONTRAST dated 09/30/2013 FINDINGS: The right kidney measures grossly 9 x 6 cm. The left kidney measures grossly 10 x 6 cm. Cortical thickness is normal. Both kidneys show slight increase in cortical echogenicity. This can be body habitus artifact or medical renal disease. No hydronephrosis or suspicious renal mass. A small 10 mm anechoic to hypoechoic focus is present lower pole right kidney most likely an incidental cyst. A 7 mm anechoic to hypoechoic focus is present in the mid to lower left kidney also believed to be an incidental cyst. No bladder wall thickening or mass. No intraluminal stone or mass. IMPRESSION: No hydronephrosis or suspicious renal mass. Increased cortical echogenicity in each kidney likely reflects underlying medical renal disease. No urinary bladder abnormality seen. Conclusions/Impression: KATE may be multi-factorial but exacerbated by his recent excessive ibuprofen CKD III with proteinuria -No NSAIDs -Continue IVF -Renal labs pending -Arrange for a renal biopsy due to progressive CKD with 2.8g proteinuria HTN with CKD -Continue Amlodipine -Continue Losartan BID -Increase Coreg Mild malnutrition -Encourage nutrition HyperTG -Low sugar diet
--- NOTE | 2021-10-10 23:35 | P.PN ---
Subjective Date of Service: 10/10/21 Subjective: No new changes, No C/O voiced, Improving Review of Systems 10-point ROS is otherwise unremarkable Physical Examination - Vital Signs Temperature: 97.5 F Blood Pressure: 136/89 Pulse: 95 Respirations: 19 Pulse Ox (%): 97 - Physical Exam General: Alert, In no apparent distress, Oriented x3 HEENT: Atraumatic, PERRLA, EOMI Neck: Supple, JVD not distended Respiratory: Clear to auscultation bilaterally, Normal air movement Cardiovascular: Regular rate/rhythm, Normal S1 S2 Gastrointestinal: Normal bowel sounds, No tenderness Musculoskeletal: No tenderness Integumentary: No rashes Neurological: Normal speech, Normal tone, Normal affect Lymphatics: No axilla or inguinal lymphadenopathy - Studies Medications List Reviewed: Yes Assessment & Plan - Problems (Diagnosis) (1) Acute kidney injury Current Visit: Yes Status: Acute - Plan Plan: 1. Continue with IV fluids 2. Renal biopsy 3. Monitor labs 4. Nephrology consultation 5. GI and DVT prophylaxis Discharge Plan: Home Plan to discharge in: Greater than 2 days - Advance Directives Does patient have a Living Will: No Does patient have a Durable POA for Healthcare: No - Code Status/Comfort Care Code Status Assessed: Yes Code Status: Full Code Physician Review: Patient Assessed, Agree with Above Assessment and Plan Critical Care: No Time Spent Managing PTS Care (In Minutes): 35
[2021-10-11] MEDS: carvediloL 12.5 MG TAB PO SCH ×2 (06:00→17:13)
[2021-10-11 06:03] LABS: Absolute Lymphocytes (CBC) 2.2 K/uL (0.7-4.9); Hematocrit 43.6 % (39.6-49.0); Lymphocytes % 30.1 % (15.3-44.8); MPV 8.4 fL (7.6-11.3); RBC Red Blood Cell Count 4.82 M/uL (4.33-5.43)
[2021-10-11 06:15] LABS: Magnesium 2.4 mg/dL (1.8-2.4); Potassium 4.2 mmol/L (3.5-5.1)
[2021-10-11 06:17] LABS: Protime INR 0.94
[2021-10-11 06:19] LABS: Albumin 3.2 g/dL (3.4-5.0); Bilirubin Total 0.4 mg/dL (0.2-1.0); Protein, Total 6.9 g/dL (6.4-8.2)
--- NOTE | 2021-10-11 07:39 | ECHO ---
HEIGHT: 5 ft 8 in WEIGHT: 212 lb 11.2 oz DATE OF STUDY: 10/10/[address]: Israel Blackburn MD 2-DIMENSIONAL: YES M.MODE: YES DOPPLER: YES COLOR FLOW: YES TDS: NO PORTABLE: NO DEFINITY: NO BUBBLE STUDY: NO DIAGNOSIS: HIGH TROPONIN CARDIAC HISTORY: CATHERIZATION: NO SURGERY: NO PROSTHETIC VALVE: NO PACEMAKER: NO MEASUREMENTS (cm) DIASTOLIC (NORMALS) SYSTOLIC (NORMALS) IVSd 1.2 (0.6-1.2) LA Diam 3.5 (1.9-4.0) LVEF 51% LVIDd 4.1 (3.5-5.7) LVIDs 3.1 (2.0-3.5) %FS 25% LVPWd 1.2 (0.6-1.2) Ao Diam 2.7 (2.0-3.7) 2 DIMENSIONAL ASSESSMENT: RIGHT ATRIUM: NORMAL LEFT ATRIUM: NORMAL RIGHT VENTRICLE: NORMAL LEFT VENTRICLE: NORMAL TRICUSPID VALVE: NORMAL MITRAL VALVE: NORMAL PULMONIC VALVE: NORMAL AORTIC VALVE: NORMAL PERICARDIAL EFFUSION: NONE AORTIC ROOT: NORMAL LEFT VENTRICULAR WALL MOTION: NORMAL. DOPPLER/COLOR FLOW: NORMAL. COMMENTS: NORMAL 2D ECHO WITH DOPPLER. NO WALL MOTION ABNORMALITY. NO EFFUSION. TECHNOLOGIST: SHAQUILLE CRUZ
[2021-10-11] MEDS ORDERED: MIDAZOLAM HCL 2 MG/2 ML INJ ONE (10:24)
[2021-10-11] MEDS ORDERED: FENTANYL CITR 100 MCG/2 ML ONE (10:24)
[2021-10-11] MEDS ORDERED: MIDAZOLAM HCL 2 MG/2 ML INJ IV ONE (10:24)
[2021-10-11] MEDS ORDERED: FLUMAZENIL 0.1 MG/ML (5 mL VIAL) IV ONE (10:26)
[2021-10-11] MEDS ORDERED: NALOXONE 0.4 MG/ML VIAL ONE (10:26)
[2021-10-11] MEDS ORDERED: NA CHLORIDE 0.9% 0 ML ONE (10:26)
[2021-10-11] MEDS: LOSARTAN POTASSIUM 50 MG TABLET PO SCH ×2 (12:40→20:50)
[2021-10-11] MEDS: AMLODIPINE 10 MG TAB PO SCH (12:40)
[2021-10-11] MEDS: NACHLORIDE 0.45% 1,000 ML IV SCH (12:40)
--- NOTE | 2021-10-11 13:11 | RAD REPORT ---
EXAM DESCRIPTION: CT - Renal Biopsy CT - 10/11/2021 12:21 pm CLINICAL HISTORY: PROGRESSIVE CKD WITH PROTEINURIA COMPARISON: CT ABD PELVIS W CONTRAST dated 09/30/2013 FINDINGS: Preoperative diagnosis: Kidney disease Post operative diagnosis: Same Conscious Sedation: 45 minutes of IV conscious sedation was utilized.. Patient was continuously monitored by nursing staff. Contrast used: NONE Estimated blood loss: less than 5 mL Specimens: 3 x 18 gauge core specimens The patient was placed prone on the table and the inferior left flank area was prepped and draped in the usual sterile fashion. 1% lidocaine was infiltrated into the subcutaneous tissues for local anest hesia. Under computed tomographic guidance, a 17 gauge introducer was advanced into the lesion. Subse quently, a 18 gauge, 18 cm long, 20 mm throw core biopsy gun was advanced into the inferior left kidn ey and 3 cores were obtained. Postprocedure imaging demonstrated no complications. Samples were given to pathology for analysis. Th e patient tolerated the procedure without immediate complication and transferred to the recovery room in stable condition. IMPRESSION: Successful nonfocal left renal biopsy. 45 minutes of IV conscious sedation was utilized. All CT scans are performed using dose optimization technique as appropriate and may include automated exposure control or mA/KV adjustment according to patient size.
--- NOTE | 2021-10-11 18:13 | P.PN ---
Date of Service: 10/11/21 Vital Signs Temp Pulse Resp BP Pulse Ox 97.7 F 103 H 16 164/83 H 97 10/11/21 16:04 10/11/21 16:04 10/11/21 16:04 10/11/21 16:04 10/11/21 16:04 Medications Acetaminophen (Acetaminophen 325 Mg Tablet) 650 mg PO Q4HP PRN PRN Reason: Pain scale 5-7 (Moderate) Last Admin: 10/08/21 17:33 Dose: 325 mg Documented by: Amlodipine Besylate (Amlodipine 10 Mg Tab) 10 mg PO DAILY [facility] Last Admin: 10/11/21 12:40 Dose: 10 mg Documented by: Carvedilol (Carvedilol 12.5 Mg Tab) 12.5 mg PO BID 6AM 6PM [facility] Last Admin: 10/11/21 17:13 Dose: 12.5 mg Documented by: Hydralazine HCl (Hydralazine Hcl 20 Mg/Ml Vial) 10 mg IV Q4HP PRN PRN Reason: Titrate to SBP (MUST DEFINE) Last Admin: 10/10/21 14:44 Dose: 10 mg Documented by: Labetalol HCl (Labetalol 20 Mg/4ml Syringe) 10 mg IV Q4H PRN PRN Reason: Titrate to SBP (MUST DEFINE) Last Admin: 10/10/21 13:18 Dose: 20 mg Documented by: Losartan Potassium (Losartan Potassium 50 Mg Tablet) 50 mg PO BID [facility] Last Admin: 10/11/21 12:40 Dose: 50 mg Documented by: Ondansetron HCl (Ondansetron 4 Mg/2 Ml Vial) 4 mg IV Q6HP PRN PRN Reason: NAUSEA / VOMITING Sodium Chloride (Flush Normal Saline 10 Ml) 10 ml IV BID [facility] Last Admin: 10/10/21 21:00 Dose: 10 ml Documented by: Assessment/ Plan: Nephrology No dyspnea No chest pain No acute events overnight Vitals, medications, blood work and imaging reviewed in the chart. General: Oriented x3, Cooperative HEENT: Atraumatic Neck: Supple Respiratory: Clear to auscultation bilaterally Cardiovascular: No edema, Regular rate/rhythm Gastrointestinal: Soft and benign, Non-distended Musculoskeletal: No clubbing, No contractures Integumentary: No rashes, No cyanosis Neurological: Normal speech Blood work reviewed in the chart. Imagings Data: EXAM DESCRIPTION: Cindy Single View10/07/2021 6:48 pm CLINICAL HISTORY: Chest pain COMPARISON: 2017 FINDINGS: The lungs appear clear of acute infiltrate. The heart is normal size IMPRESSION: No acute abnormalities displayed EXAM DESCRIPTION: US - Renal Ultrasound-Complete - 10/07/2021 11:55 pm CLINICAL HISTORY: arf COMPARISON: CT ABD PELVIS W CONTRAST dated 09/30/2013 FINDINGS: The right kidney measures grossly 9 x 6 cm. The left kidney measures grossly 10 x 6 cm. Cortical thickness is normal. Both kidneys show slight increase in cortical echogenicity. This can be body habitus artifact or medical renal disease. No hydronephrosis or suspicious renal mass. A small 10 mm anechoic to hypoechoic focus is present lower pole right kidney most likely an incidental cyst. A 7 mm anechoic to hypoechoic focus is present in the mid to lower left kidney also believed to be an incidental cyst. No bladder wall thickening or mass. No intraluminal stone or mass. IMPRESSION: No hydronephrosis or suspicious renal mass. Increased cortical echogenicity in each kidney likely reflects underlying medical renal disease. No urinary bladder abnormality seen. Conclusions/Impression: KATE may be multi-factorial but exacerbated by his recent excessive ibuprofen CKD III with proteinuria -No NSAIDs -Continue IVF -Renal labs pending -Arrange for a renal biopsy today due to progressive CKD with 2.8g proteinuria HTN with CKD -Continue Amlodipine -Continue Losartan BID -Continue Coreg Mild malnutrition -Encourage nutrition HyperTG -Low sugar diet
[2021-10-12 05:41] LABS: Hematocrit 41.5 % (39.6-49.0); Lymphocytes % 21.3 % (15.3-44.8); MPV 8.2 fL (7.6-11.3); RBC Red Blood Cell Count 4.58 M/uL (4.33-5.43)
[2021-10-12 06:02] LABS: Albumin 3.2 g/dL (3.4-5.0); Bilirubin Total 0.5 mg/dL (0.2-1.0); Potassium 4.4 mmol/L (3.5-5.1); Protein, Total 6.7 g/dL (6.4-8.2)
[2021-10-12] MEDS: carvediloL 12.5 MG TAB PO SCH (07:37)
[2021-10-12 08:58] VITALS: BP 149/83; TEMP 97
[2021-10-12] MEDS: LOSARTAN POTASSIUM 50 MG TABLET PO SCH (09:20)
[2021-10-12] MEDS: AMLODIPINE 10 MG TAB PO SCH (09:20)
[2021-10-12 21:36] LABS: Immunoglobulin A 229 mg/dL (47-310); Immunoglobulin G 1005 mg/dL (600-1640); Immunoglobulin M 83 mg/dL (50-300)
[2021-10-12 22:43] LABS: Albumin, (SPE) 3.6 g/dL (3.8-4.8); Alpha-1-Globulins 0.3 g/dL (0.2-0.3); Alpha-2-Globulins 0.8 g/dL (0.5-0.9); INTERPRETATION REPORT
[2021-10-13 06:46] LABS: HBsAG Nonreactive (Nonreactive)
== END 2021-10-12 10:22 | disposition home or self-care (01) | DRG 683 ==
LOC: ER 18:06 → ERHOLD 19:40 → 2ND 21:39
PROVIDERS: ADMIT Internal Medicine; ATTEND Internal Medicine
PROC: 0TB13ZX Excision of Left Kidney, Percutaneous Approach, Diagnostic (ICD-10-PCS; principal; 2021-10-11)
DX: N17.9 Acute kidney failure, unspecified (principal); E46 Unspecified protein-calorie malnutrition; R77.8 Other specified abnormalities of plasma proteins; R51.9 Headache, unspecified; N14.1 Nephropathy induced by other drugs, medicaments and biological substances; T39.315A Adverse effect of propionic acid derivatives, initial encounter; Y92.009 Unspecified place in unspecified non-institutional (private) residence as the place of occurrence of the external cause; I12.9 Hypertensive chronic kidney disease with stage 1 through stage 4 chronic kidney disease, or unspecified chronic kidney disease; N18.30 Chronic kidney disease, stage 3 unspecified; Z68.32 Body mass index [BMI] 32.0-32.9, adult; Z20.822 Contact with and (suspected) exposure to COVID-19
CPT/HCPCS: 36415; 71045; 76770; 80048; 80053; 80061; 80076; 81001; 81003; 82088; 82550; 82570; 82784; 83520; 83735; 83874; 83880; 84100; 84156; 84165; 84244; 84439; 84443; 84484; 84550; 85025; 85610; 85730; 86021; 86038; 86160; 86317; 86334; 86335; 86704; 86803; 87086; 87088; 87340; 88300; 93005; 93306; 96374; 99285; J0360; J1644; J2250; J2310; J3010; J7030; J7040; U0003

== ENCOUNTER 2022-07-14 14:06 | Emergency (ER) | payer SELFPAY ==
[2022-07-14] MEDS ORDERED: HYDROCODONE/APAP 7.5/325 MG TAB ONE (17:18)
--- NOTE | 2022-07-14 17:39 | RAD REPORT ---
EXAM DESCRIPTION: RAD - Foot Right 3 View - 07/14/2022 5:24 pm CLINICAL HISTORY: Right foot pain FINDINGS: No fracture or dislocation is seen No bone or joint abnormality noted.
--- NOTE | 2022-07-14 18:03 | ER ---
Nurse's Notes [facility] Name: Juan Lopez Age: 27 yrs Sex: Male : 1995 Arrival Date: 07/14/2022 Time: 14:18 Bed 16 Private MD: Diagnosis: Pain in right toe(s) Presentation: 07/14 14:29 Chief complaint: Right great to pain and swelling x 2 days. Denies injury. Coronavirus hb screen: At this time, the client does not indicate any symptoms associated with coronavirus-19. Ebola Screen: No symptoms or risks identified at this time. Initial Sepsis Screen: Does the patient meet any 2 criteria? No. Patient's initial sepsis screen is negative. Does the patient have a suspected source of infection? No. Patient's initial sepsis screen is negative. Risk Assessment: Do you want to hurt yourself or someone else? Patient reports no desire to harm self or others. Onset of symptoms was July 12, 2022. 14:29 Method Of Arrival: Ambulatory hb 14:29 Acuity: RADHA 3 hb Historical: - Allergies: 14:31 No Known Allergies; hb - PMHx: 14:31 Hypertensive disorder; hb - Immunization history:: Adult Immunizations not up to date. - Social history:: Smoking status: unknown. Screenin:18 Fall Risk Gait- Impaired (20 pts.). Total Livingston Fall Scale indicates No Risk (0-24 pts).kr3 19:25 Abuse screen: Denies threats or abuse. Nutritional screening: No deficits noted. kr3 Tuberculosis screening: No symptoms or risk factors identified. Assessment: 17:20 General: Appears in no apparent distress. comfortable, Behavior is calm, cooperative, kr3 appropriate for age. Pain: Complains of pain in plantar aspect of left first toe. 17:45 Neuro: Level of Consciousness is awake, alert, obeys commands. Cardiovascular: kr3 Patient's skin is warm and dry. Respiratory: Airway is patent Respiratory effort is even, unlabored, Respiratory pattern is regular, symmetrical. GI: No signs and/or symptoms were reported involving the gastrointestinal system. : No signs and/or symptoms were reported regarding the genitourinary system. EENT: No signs and/or symptoms were reported regarding the EENT system. Derm: No signs and/or symptoms reported regarding the dermatologic system. Musculoskeletal: Circulation, motion, and sensation intact. Vital Signs: 14:29 BP 128 / 88; Pulse 81; Resp 16; Temp 97.1; Pulse Ox 99% ; Weight 90.72 kg; Height 5 ft. hb 8 in. (172.72 cm); Pain 7/10; 17:46 BP 129 / 84; Pulse 84; Resp 16; Pulse Ox 100% on R/A; kr3 14:29 Body Mass Index 30.41 (90.72 kg, 172.72 cm) hb ED Course: 14:18 Patient arrived in ED. [id number] 14:24 Pedro Burkett PA is PHCP. cp 14:24 Pedro Meade MD is Attending Physician. cp 14:31 Triage completed. hb 14:31 Arm band placed on. hb 17:16 Shanell Retana, ABEL is Primary Nurse. kr3 17:26 XRAY Foot RIGHT 3 View In Process Unspecified. EDMS 17:50 Bed in low position. Call light in reach. Side rails up X 1. kr3 18:40 No provider procedures requiring assistance completed. Patient did not have IV access kr3 during this emergency room visit. Administered Medications: 17:19 Drug: Hydrocodone-Acetaminophen (7.5 mg-325 mg) 1 tabs Route: PO; kr3 19:27 Follow up: Response: No adverse reaction; RASS: Alert and Calm (0) kr3 Medication: 19:27 VIS not applicable for this client. kr3 Outcome: 18:03 Discharge ordered by MD. cp 18:45 Discharge instructions given to patient, Instructed on discharge instructions, follow kr3 up and referral plans. medication usage, Demonstrated understanding of instructions, follow-up care, medications, Prescriptions given X 2. 18:51 Patient left the ED. kr3 19:26 Discharged to home with crutches. kr3 19:26 Condition: stable Signatures: Dispatcher [employer] EDAZ Pedro Burkett PA PA cp Baxter, Heather, RN RN Kelley Courtney [email or web address] Shanell Retana, RN RN kr3 Corrections: (The following items were deleted from the chart) 16:28 14:29 Acuity: RADHA 4 hb hb
--- NOTE | 2022-07-14 18:03 | EDPHYS ---
Physician Documentation [facility] Name: Juan Lopez Age: 27 yrs Sex: Male : 1995 Arrival Date: 07/14/2022 Time: 14:18 Bed 16 Private MD: Pedro Moise HPI: 07/14 17:00 This 27 yrs old Male presents to ER via Ambulatory with complaints of RT TOE cp SWELLING/PAIN. 17:00 The patient presents with right great toe pain and swelling. cp 17:00 Context: resulted from an unknown cause, Mechanism of Injury: none the patient can cp fully bear weight. Onset: The symptoms/episode began/occurred 2 day(s) ago. Associated signs and symptoms: Pertinent negatives: fever, warmth, redness. 17:00 Patient denies injury to toe and reports only thing he can think of is he did attempt cp to "pop" the interphalangeal joint of his right great toe. Patient reports history of kidney disease. Historical: - Allergies: 14:31 No Known Allergies; hb - PMHx: 14:31 Hypertensive disorder; hb - Immunization history:: Adult Immunizations not up to date. - Social history:: Smoking status: unknown. ROS: 17:05 MS/extremity: Positive for pain, swelling, tenderness, of the right great toe, Negative cp for injury or acute deformity, paresthesias. 17:05 Constitutional: Negative for body aches, chills, fever, poor PO intake. cp 17:05 Skin: Negative for cellulitis, rash. cp 17:05 Neck: Negative for pain with movement, pain at rest. cp 17:05 Back: Negative for pain at rest, pain with movement. 17:05 Neuro: Negative for dizziness, tingling, weakness. 17:05 All other systems are negative. Exam: 17:10 Constitutional: The patient appears in no acute distress, alert, awake, non-toxic, well cp developed, well nourished. 17:10 Head/Face: Normocephalic, atraumatic. cp 17:10 Chest/axilla: Inspection: normal. 17:10 Cardiovascular: Rate: normal. 17:10 Respiratory: the patient does not display signs of respiratory distress, Respirations: normal, no use of accessory muscles, no retractions. 17:10 Abdomen/GI: Inspection: abdomen appears normal, Palpation: abdomen is soft and non-tender, in all quadrants. 17:10 Back: pain, is absent, ROM is normal. 17:10 Musculoskeletal/extremity: Extremities: grossly normal except: noted in the right great toe: general swelling, pain to palpation and ROM interphalangeal joint, overlying skin with no open wounds, no discoloration, no erythema, Pulses: noted to be 2+ in the right dorsalis pedis artery, Perfusion: the extremity is normally perfused throughout, the right great toe Severe pain noted. Vital Signs: 14:29 BP 128 / 88; Pulse 81; Resp 16; Temp 97.1; Pulse Ox 99% ; Weight 90.72 kg; Height 5 ft. hb 8 in. (172.72 cm); Pain 7/10; 17:46 BP 129 / 84; Pulse 84; Resp 16; Pulse Ox 100% on R/A; kr3 14:29 Body Mass Index 30.41 (90.72 kg, 172.72 cm) hb MDM: 15:02 Patient medically screened. cp 17:00 Differential diagnosis: fracture, sprain, gout, cellulitis, ingrown nail. cp 18:03 Data reviewed: vital signs, nurses notes, radiologic studies, plain films. cp 18:03 Test interpretation: by ED physician or midlevel provider: plain radiologic studies. cp Counseling: I had a detailed discussion with the patient and/or guardian regarding: the historical points, exam findings, and any diagnostic results supporting the discharge/admit diagnosis, radiology results, the need for outpatient follow up, a family practitioner, to return to the emergency department if symptoms worsen or persist or if there are any questions or concerns that arise at home. 07/14 16:47 Order name: XRAY Foot RIGHT 3 View; Complete Time: 17:52 cp 07/14 17:52 Interpretation: Report reviewed. cp 07/14 17:56 Order name: Crutches; Complete Time: 19:27 cp Administered Medications: 17:19 Drug: Hydrocodone-Acetaminophen (7.5 mg-325 mg) 1 tabs Route: PO; kr3 19:27 Follow up: Response: No adverse reaction; RASS: Alert and Calm (0) kr3 Disposition Summary: 07/14/22 18:03 Discharge Ordered Location: Home cp Problem: new cp Symptoms: have improved cp Condition: Stable cp Diagnosis - Pain in right toe(s) cp Followup: cp - With: Private Physician - When: 2 - 3 days - Reason: Worsening of condition Discharge Instructions: - Discharge Summary Sheet cp - Foot Pain cp Forms: - Medication Reconciliation Form cp - Thank You Letter cp - Antibiotic Education cp - Prescription Opioid Use cp Prescriptions: - Prednisone 20 mg Oral Tablet - take 2 tablets by ORAL route once daily for 5 days; 10 tablet; Refills: 0, cp Product Selection Permitted - Tramadol 50 mg Oral Tablet - take 1 tablet by ORAL route every 8 hours as needed; 12 tablet; Refills: 0, cp Product Selection Permitted Signatures: Dispatcher [employer] EDMS Pedro Burkett PA PA cp Riana Arellano RN RN Shanell Retana RN RN kr3 Corrections: (The following items were deleted from the chart) 07/15 15:27 07/14 17:00 Patient denies injury to toe and reports only thing he can think of is he cp did attempt to "pop" the interphalangeal joint of his right great toe. cp
[2022-07-14 18:57] VITALS: TEMP 97.1
[2022-07-14 18:58] VITALS: BP 129/84; O2SAT 100
== END 2022-07-14 18:51 | disposition home or self-care (01) ==
LOC: ER 14:06
DX: M79.674 Pain in right toe(s) (principal)
CPT/HCPCS: 99283